=== PATIENT | male | born 1955 | race Caucasian/White ===

== ENCOUNTER → 2016-07-11 | Outpatient (CLI) | payer BC | END | disposition home or self-care (01) | LOC: PCVCIMAG 13:01 | PROVIDERS: ATTEND Internal Medicine Cardiovascular Disease | DX: I65.23 Occlusion and stenosis of bilateral carotid arteries (principal); I10 Essential (primary) hypertension; R94.31 Abnormal electrocardiogram [ECG] [EKG]; Z72.0 Tobacco use; Z82.49 Family history of ischemic heart disease and other diseases of the circulatory system | CPT/HCPCS: 93325; 93351; 93880 ==

== ENCOUNTER → 2016-07-18 | Outpatient (CLI) | payer BC ==
[~2016-07-18] MED LIST: DIAZEPAM 10 MG TABLET. ONE; IOHEXOL 350 MG/ML 100 ML VIAL. ONE; IOHEXOL 350 MG/ML 50 ML VIAL. ONE; IV NORMAL SALINE 1000ML BAG 1,000 ML ONE; LIDOCAINE 1% Multi-Dose 20 ML VIAL. ONE; MIDAZOLAM HCL/PF 2 MG/2 ML VIAL. ONE; fentaNYL PF VIAL 100 MCG/2 ML VIAL ONE; hydrALAZINE 20 MG/ML VIAL. ONE
== END ==
LOC: PCVCINTER 10:59
PROVIDERS: ATTEND Internal Medicine Cardiovascular Disease
DX: I25.10 Atherosclerotic heart disease of native coronary artery without angina pectoris (principal); I10 Essential (primary) hypertension; E78.00 Pure hypercholesterolemia, unspecified; F17.200 Nicotine dependence, unspecified, uncomplicated; Z98.890 Other specified postprocedural states; Z82.49 Family history of ischemic heart disease and other diseases of the circulatory system
CPT/HCPCS: 75625; 93458; 99152; 99153; C1751; C1760; C1769; C1894; J2250; J3010; J7030; Q9967; J0360

== ENCOUNTER → 2016-11-28 | Outpatient (CLI) | payer BC ==
--- NOTE | 2016-11-28 13:19 | PCVCIMAG ---
APPROVED REPORT Exam: Stress Echocardiogram Indication: CAD s/p CABG, Hypertension, Hyperlipidemia Patient Location: Echo lab Stress Nurse: Theresa Marion RN Room #: 2 Status: routine Ht: 5 ft 4 in HR: 81 bpm BP: 132/90 mmHg Rhythm: NSR Medical History Medical History: CAD s/p CABG, HTN, Hyperlipidemia Cardiac Risk Factors: HTN, Hyperlipidemia Previous Cardiac Procedures: CABG Pretest Chest Pain Characteristics: No chest pain Exercise History: Sedentary Procedure The patient underwent an Exercise Stress Test using the Mendez Protocol. Blood pressure, heart rate, and EKG were monitored. An Echocardiogram was performed by laundry technician in four stages in quad fashion. At peak stress, four selected images were obtained and placed side by side with resting images for comparison. Stress Test Details Stress Test: Exercise stress testing was performed using a Mendez protocol. HR Resting HR: 81 bpmMax Heart Rate (APMHR): 158 bpm Max HR Achieved: 142 bpmTarget HR (85% APMHR): 134 bpm % of APMHR: 89 Recovery HR: 82 bpm HR response to stress: Normal HR response to stress BP Resting BP: 132/90 mmHg Max BP: 160/102 mmHg Recovery BP: 140/92 mmHg ECG Resting ECG: Sinus Rhythm Stress ECG: Sinus Rhythm ST Change: Non-ischemic Arrhythmia: Rare PVCs Recovery ECG: Sinus Rhythm Recovery ST Change: Non-ischemic Recovery Arrhythmia: None Clinical Reason for Termination: Maximal effort Stress Symptoms: none Exercise duration: 6 min 45 sec Highest Stage Achieved: Stage 3: 3.4 mph at 14% grade. Exercise capacity: 9.3 METs Angina Score: None No complications. Stress ECG Conclusion The patient exercised according to the Mendez protocol for 6:45 mins; achieving a work level of 9.3 METS. The resting heart rate of 81 bpm mervat to a maximal heart rate of 142 bpm. This value represents 89% of the maximal, age-predicted heart rate. The resting blood pressure of 132/90 mmHg, mervat to a maximum of 160/102 mmHg. The exercise test was stopped due to fatigue. Pre-Stress Echo The resting Echocardiogram showed normal left ventricular contractility with an estimated Ejection Fraction of about 50-55%. The resting Echocardiogram demonstrated wall motion abnormality in the septal wall consistent with CABG . Normal wall motion in all segments on baseline images except the septum which is consistenty with CABG. Post-Stress Echo The stress Echocardiogram showed normal left ventricular contractility with an estimated Ejection Fraction of about 60-65%. Normal augmentation of wall motion in all segments on post stress images. Clinical No clinical or ECG evidence for ischemia. Conclusion Clinical Response: Non-ischemic Exercise Capacity: Below Average Stress ECG Response: Non-ischemic Stress Echo Images: Non-ischemic No clinical, EKG or echocardiographic evidence for ischemia. No echocardiographic evidence for exercise induced ischemia. Normal stress echocardiogram with maximal exercise stress. LDL 52 <Conclusion> No clinical, EKG or echocardiographic evidence for ischemia. No echocardiographic evidence for exercise induced ischemia. Normal stress echocardiogram with maximal exercise stress. LDL 52
== END | disposition home or self-care (01) ==
LOC: PCVCIMAG 10:56
PROVIDERS: ATTEND Internal Medicine Cardiovascular Disease
DX: I25.10 Atherosclerotic heart disease of native coronary artery without angina pectoris (principal); I10 Essential (primary) hypertension; E78.5 Hyperlipidemia, unspecified; F17.200 Nicotine dependence, unspecified, uncomplicated; I49.3 Ventricular premature depolarization; Z86.79 Personal history of other diseases of the circulatory system; Z82.49 Family history of ischemic heart disease and other diseases of the circulatory system; Z95.1 Presence of aortocoronary bypass graft
CPT/HCPCS: 93325; 93351

== ENCOUNTER → 2018-07-03 | Outpatient (CLI) | payer BC ==
--- NOTE | 2018-07-03 17:04 | PCVCIMAG ---
APPROVED REPORT Study performed: 07/03/2018 09:43:49 EXAM: Comprehensive 2D, Doppler, and color-flow Echocardiogram Patient Location: Echo lab Room #: 2Status: routine BSA: 2.08 HR: 66 bpmBP: 156/90 mmHg Rhythm: RBBB Other Information Study Quality: Fair Indications COPD Dyspnea CAD S/P CABG, S/P Tricuspid ring repair fir TR 2D Dimensions IVSd: 15.22 (7-11mm)LVOT Diam: 20.02 (18-24mm) LVDd: 44.06 mm PWd: 8.37 (7-11mm)Ascending Ao: 29.81 (22-36mm) LVDs: 31.79 (25-40mm) Left Atrium: 45.28 (27-40mm) Aortic Root: 26.46 mm LV Single Plane 4CH: 54.31 % LV Single Plane 2CH: 57.28 % Biplane EF: 55.9 % Volumes Left Atrial Volume (Systole) Single Plane 4CH: 56.59 mLSingle Plane 2CH: 35.38 mL Biplane LA Volume: 46.00 mLLA ESV Index: 22.00 mL/m2 Aortic Valve AoV Peak Hermes.: 1.23 m/s AO Peak Gr.: 6.25 mmHgLVOT Max P.09 mmHg LVOT Max V: 0.87 m/s MAURO Vmax: 2.21 cm2 Mitral Valve E/A Ratio: 1.1 MV Decel. Time: 142.01 ms MV E Max Hermes.: 0.74 m/s MV A Hermes.: 0.68 m/s MR Radius: 0.68 cm MR Als. Hermes: 0.61 m/s MR Flow: 178.45 mL/s IVRT: 96.89 ms TDI E/Lateral E': 5.69E/Medial E': 7.40 Medial E' Hermes.: 0.10 m/s Lateral E' Hermes.: 0.13 m/s Pulmonary Valve PV Peak Hermes.: 0.90 m/sPV Peak Gr.: 3.22 mmHg Pulmonary Vein P Vein S: 0.53 m/sP Vein A: 0.26 m/s P Vein D: 0.63 m/sP Vein A Dur.: 107.3 msec P Vein S/D Ratio: 0.84 Tricuspid Valve TR Peak Hermes.: 2.79 m/s TR Peak Gr.: 31.14 mmHg TV Vmax: 0.95 m/sPA Pressure: 38.00 mmHg Left Ventricle The left ventricle is normal size. Paradoxical septal motion consistent with post-operative state. Mild basal septal hypertrophy is present. Left ventricular systolic function is normal. The left ventricular ejection fraction is within the normal range. LVEF is 55-60%. Grade II - pseudonormal filling dynamics. Right Ventricle The right ventricle is normal size. The right ventricular systolic function is normal. Atria The left atrium size is normal. The right atrium size is normal. Aortic Valve The aortic valve is not well visualized. Aortic valve is probably trileaflet. No aortic regurgitation is present. There is no aortic valvular stenosis. Mitral Valve The mitral valve is normal in structure. Mild to moderate mitral regurgitation. No evidence of mitral valve stenosis. Tricuspid Valve The tricuspid valve is normal in structure. Mild tricuspid regurgitation with a PA pressure of 38 mmHg. Mild pulmonary hypertension. Pulmonic Valve The pulmonary valve is normal in structure. Trace pulmonic regurgitation. Great Vessels The aortic root is normal in size. The ascending aorta is normal in size. IVC is normal in size and collapses >50% with inspiration. Pericardium There is no pericardial effusion. There is no pleural effusion. <Conclusion> The left ventricle is normal size. Paradoxical septal motion consistent with post-operative state. LVEF is 55-60%. Grade II - pseudonormal filling dynamics. The right ventricle is normal size. The right ventricle is normal size. The left atrium size is normal. The right atrium size is normal. The aortic valve is not well visualized. Aortic valve is probably trileaflet. Mild to moderate mitral regurgitation. Mild tricuspid regurgitation with a PA pressure of 38 mmHg. Mild pulmonary hypertension. The aortic root is normal in size. There is no pericardial effusion.
== END | disposition home or self-care (01) ==
LOC: PCVCIMAG 07:26
PROVIDERS: ATTEND Internal Medicine Cardiovascular Disease
DX: I08.1 Rheumatic disorders of both mitral and tricuspid valves (principal); I25.10 Atherosclerotic heart disease of native coronary artery without angina pectoris; J44.9 Chronic obstructive pulmonary disease, unspecified; R06.00 Dyspnea, unspecified; I27.20 Pulmonary hypertension, unspecified; Z95.1 Presence of aortocoronary bypass graft
CPT/HCPCS: 93306